=== PATIENT | female | born 1995 | race Two or more races ===

== ENCOUNTER 2024-10-27 23:57 | Inpatient (IN) | payer MEDICAID, SELFPAY ==
[2024-10-28] VITALS (22 sets, daily range): BP systolic 115–161; BP diastolic 68–96; PULSE 81–105; RESP 16–20; TEMP 36.7–37; O2SAT 97–100
[2024-10-28] MEDS: OXYTOCIN in NS 20 units 20 UNIT/1,000 ML BAG 125 UNIT IV (00:10)
--- NOTE | 2024-10-28 00:19 | PD.LDHP ---
Documentation for date of: 10/28/24 OB Labor/Induct. HPI History of Present Illness : 6 Para: 5 Term pregnancies: 5 pregnancies: 0 Living children: 5 History of Abortions: Spontaneous and Elective: 0 History of sections: No History of : No History of present illness: 29-year-old -0-0-5 presented to labor and delivery through the emergency room in active labor and full dilatation of cervix. Patient proceeded to deliver precipitously. Of note she has no care during the current . Review of Systems Review of Systems Systems Reviewed: All systems reviewed, normal except as documented Past Medical History Surgical History SURGICAL: Negative Section Meds Home Medications and Allergies Home Medications ?Medication ?Instructions ?Recorded ?Confirmed ?Type vit no.95-ferrous 1 tab PO QDAY 02/01/23 02/08/23 History fumarate 28 mg-folic acid 800 mcg tablet () Allergies Allergy/AdvReac Type Severity Reaction Status Date / Time No Known Allergies Allergy Unknown Verified 02/01/23 23:30 OB Exam Physical Exam Vital signs: Pulse BP 100 133/89 H 10/28/24 00:11 10/28/24 00:11 Constitutional Constitutional: no acute distress Routine HEENT Exam Head: Present normocephalic and atraumatic Eye: Present EOMI and PERRL ENT: Present mucous membranes moist Routine Neck Exam Neck: Present supple and trachea midline Routine Cardiovascular Exam Cardiovascular: Present RRR Routine Abdominal Exam Abdominal: Present soft and normoactive bowel sounds Detailed Labor and Delivery Exam Dilation (cm): 10 Effacement (%): 100 Baseline heart rate: 140 monitor accelerations: 15x15 monitor decelerations: None Routine Extremities Exam Extremities: Present full ROM Routine Skin Exam Skin: Present intact, dry and warm Routine Neurological Exam Neurological: Present alert, oriented X3 and CN II-XII intact Routine Psychiatric Exam Psychiatric: Present normal affect and normal thought process OB Assessment & Plan Assessment and Plan (1) Precipitous delivery: Status: Acute Assessment and plan: Patient is status post precipitous delivery Routine care All panel as well as social service consult ordered
[2024-10-28] MEDS: TRANEXAMIC ACID 1,000 MG IVPB 1,000 MG/100 ML BAG 200 MG IV (00:48)
[2024-10-28] MEDS: BENZO/LANO/ALOE (Dermoplast) 60 GM CAN 1 SPRAY TOP (00:54)
[2024-10-28 00:59] LABS: Basophils % (Auto) 0 % (0-2.5); Eosinophils # (Auto) 0.1 Thou/mm3 (0.0-0.5); Eosinophils % (Auto) 1 % (0-10); Hematocrit 26.3 % (36.0-46.0); Immature Granulocytes % (Auto) 1 % (0-0); Immature Granulocytes Auto 0.06 Thou/mm3 (0.00-0.00); Lymphocytes # (Auto) 1.9 Thou/mm3 (1.0-4.8); Lymphocytes % (Auto) 19 % (10-50); Mean Corpuscular Hemoglobin 21.2 pg (25.0-35.0); Mean Corpuscular Volume 71 fL (80-100); Monocytes # (Auto) 0.5 Thou/mm3 (0.0-0.8); Monocytes % (Auto) 5 % (0-12); Neutrophils # (Auto) 7.4 Thou/mm3 (1.8-7.7); Neutrophils % (Auto) 75 % (37-80); Nucleated Red Blood Cell % 0 /100 WBC (0); Platelet Count 223 Thou/mm3 (140-440); Red Blood Count 3.72 Miln/mm3 (4.00-5.20); White Blood Count 9.9 Thou/mm3 (3.6-11.0)
[2024-10-28 01:01] LABS: Hemoglobin 7.9 g/dL (12.0-16.0)
[2024-10-28 01:10] LABS: HIV (1&2) Antibody Rapid Non-Reactive
[2024-10-28 01:55] LABS: Hepatitis B Surface Antigen Non Reactive (Non React); Rubella, IgG Antibody Reactive (Immune)
[2024-10-28 01:59] LABS: Syphilis Nonreactive (Nonreactive)
[2024-10-28] MEDS: SODIUM CHLORIDE 0.9% 1000 ML 1,000 ML 999 ML IV (03:42)
[2024-10-28 07:29] LABS: Basophils % (Auto) 0 % (0-2.5); Eosinophils % (Auto) 0 % (0-10); Hematocrit 23.5 % (36.0-46.0); Immature Granulocytes % (Auto) 1 % (0-0); Immature Granulocytes Auto 0.08 Thou/mm3 (0.00-0.00); Lymphocytes # (Auto) 2.9 Thou/mm3 (1.0-4.8); Lymphocytes % (Auto) 20 % (10-50); Mean Corpuscular HGB Conc 29.8 g/dl (31.0-37.0); Mean Corpuscular Hemoglobin 21.3 pg (25.0-35.0); Mean Corpuscular Volume 71 fL (80-100); Monocytes # (Auto) 0.8 Thou/mm3 (0.0-0.8); Monocytes % (Auto) 6 % (0-12); Neutrophils # (Auto) 10.6 Thou/mm3 (1.8-7.7); Neutrophils % (Auto) 73 % (37-80); Nucleated Red Blood Cell % 0 /100 WBC (0); Platelet Count 247 Thou/mm3 (140-440); RDW Standard Deviation 44.2 fL (36.4-46.3); Red Blood Count 3.29 Miln/mm3 (4.00-5.20); White Blood Count 14.5 Thou/mm3 (3.6-11.0)
[2024-10-28 11:24] LABS: Amphetamine/Metham Scrn,Ur OB Positive (Negative); Benzoylecgonine Screen, Ur OB Negative (Negative); Opiate Screen,Urine OB Negative (Negative); THC Screen,Urine OB Negative (Negative)
[2024-10-28 11:25] LABS: Amphetamines/Metham U Confirm* See Sep Rpt
--- NOTE | 2024-10-28 11:29 | PC.CC ---
Patient is a 29-year-old, female, present to for delivery of baby girl. ASWAlice, met with patient [id number] to do initial assessment due mother testing positive for amphetamine/meth. ASW introduced herself, role in the agency, reason for visit, and discussed limits of confidentiality. Patient appeared alert and oriented to self, time, place, and situation. Patient made good eye contact. Patient was cooperative. Patient?s behavior appeared ordinary. No signs of delusions or hallucinations. The patient confirmed the information on the demographics. The patient reports she lives at home with her mother, Samantha Arias, and her five other children: Andrei Ivey 11/05/2012, Mello Uche 12/23/2013, Efren Uche 05/05/2015, Darrick Alonzooza 07/22/2020, Mayelin Hugo 02/08/2023. The father of the baby Pasquale Galaviz is not involved as he is incarcerated. The patient admitted to using ?meth? at a alliance party a few days ago. She reports she did not receive care as she has been going through a lot. Per RAIN Pandya, the had not been tested as mother reported the first bag fell off, the second bag baby had pooped. The patient reports she has all supplies she needs for her baby. She reports that she will be formula feeding the baby. ASW provided psychoeducation regarding baby blues and Post- Depression, as well as counseling groups at [facility]. SW provided community resources: Warm Line and Crisis Line. ASW, made the patient aware that a CWS SCAR report will be filed due to testing positive for ?meth.? The mother became tearful when provided this information. Patient denied past CWS involvement and domestic violence. CWS SCAR report was filed with Shabana Arias and report was faxed. company laundry worker reports she will contact ASW back to inform if they will be doing an immediate response. Alice KEBEDE provided update to RAIN Pandya.
--- NOTE | 2024-10-28 12:40 | PC.CC ---
CWS Remote Advisor Shabana called and notified Alice KEBEDE that she will be responding as an immediate to the hospital. ASW provided information to RAIN Pandya.
[2024-10-28] MEDS: ACETAMINOPHEN 325 MG TABLET 650 MG PO (15:11)
--- NOTE | 2024-10-28 16:56 | PC.NURSE ---
this speech writer was notified by marriage and family social worker from [employer] that she developed a 30 day safety plan for mother that was signed by mother and grandmother and another marriage and family social worker will take over the case tomorrow am, copy of marriage and family social worker id was placed in the chart
[2024-10-28] MEDS: IBUPROFEN TAB 400 MG TABLET 800 MG PO (20:03)
--- NOTE | 2024-10-28 21:56 | ESDS_ITS ---
DS: Providers Provider Date of admission: 10/27/24 23:57 Primary care physician: Physician No Primary/Family Admitting Provider: Crow Mallory MD Attending Provider on Admission: Crow Mallory MD Consults: 10/28/24 01:29 Referral Routine Comment: Attending Provider on DC: Crow Mallory MD Discharging Provider: Crow Mallory MD DS: Diagnosis Discharge Diagnosis (1) Precipitous delivery: Status: Acute (2) Encounter for care of lactating mother: Status: Acute (3) Hx of substance abuse: Status: Acute (4) Multigravida in third trimester: Status: Acute Problem List Completed Was Problem List Reviewed/Reconciled?: Yes Summary/Hosp Course Brief History: 29-year-old -0-0-5 presented to labor and delivery through the emergency room in active labor and full dilatation of cervix. Patient proceeded to deliver precipitously. Of note she has no care during the current . Time Spent with Patient Time attestation: Total time spent providing and/or coordinating discharge services: Exam Vital Signs Temp Pulse Resp BP Pulse Ox O2 Del Method 98.5 F 86 18 130/88 H 100 Room Air 10/28/24 20:26 10/28/24 20:26 10/28/24 20:26 10/28/24 20:26 10/28/24 20:26 10/28/24 20:01 Discharge Plan Plan Patient Disposition: HOME (Self Care) Patient condition on transfer: Stable Prescriptions/Referrals Prescriptions/Med Rec: New ibuprofen 400 mg Tablet 800 mg PO Q8HR PRN (Reason: Pain Scale 4-6 (Moderate) 1 Days Qty: 30 0RF docusate sodium 100 mg Capsule 100 mg PO QDAY 30 Days Qty: 30 0RF Continued PNV cmb#95-ferrous fumarate-FA [] 28 mg iron- 800 mcg tablet 1 tab PO QDAY Patient Comments: TAKE 1 TABLET BY MOUTH ONCE A DAY Discontinued ibuprofen 800 mg tablet 800 mg PO Q6H MDD 4 PRN (Reason: pain) Qty: 90 0RF docusate sodium [Colace] 100 mg capsule 100 mg PO BID Qty: 60 0RF lanolin 50 % ointment 1 applic topical TID PRN (Reason: skin irritation) Qty: 15 0RF Referrals: Mercy Juarez MD [Physician] - Crow Mallory MD [Physician] - No Primary/Family,Physician [Primary Care Provider] - Patient/Caregiver Discharge Instructions Meds to Beds: Yes Discharge Activity: activity as tolerated Education Materials: After a Vaginal , After Delivery Concerns, Breast Care After , Incision Care After Vaginal , Nutrition While , Understanding Depression, : Caring for Yourself, Feel Healthy After Print Language: [place] Stand Alone Forms: Neisha Chaudhary Info., Patient Portal Info Letter Planned Discharge Date 10/29/24
--- NOTE | 2024-10-28 22:45 | PC.NURSE ---
10/28/24 2245: Called MD Mallory, Pts. second unit of PRBC's ended and pt. has a cbc for tomorrow am 10/29/24 at 0500. Asked MD if he would like to order an earlier CBC. Instructed to wait for the morning cbc at 0500. No new orders at this time.
[2024-10-29] VITALS: BP 123/89; PULSE 93; RESP 20; TEMP 37.1; O2SAT 98
[2024-10-29 06:28] LABS: Basophils % (Auto) 0 % (0-2.5); Eosinophils # (Auto) 0.2 Thou/mm3 (0.0-0.5); Eosinophils % (Auto) 2 % (0-10); Hematocrit 27.1 % (36.0-46.0); Immature Granulocytes % (Auto) 1 % (0-0); Immature Granulocytes Auto 0.05 Thou/mm3 (0.00-0.00); Lymphocytes # (Auto) 3.2 Thou/mm3 (1.0-4.8); Lymphocytes % (Auto) 32 % (10-50); Mean Corpuscular HGB Conc 31.4 g/dl (31.0-37.0); Mean Corpuscular Hemoglobin 23.2 pg (25.0-35.0); Mean Corpuscular Volume 74 fL (80-100); Monocytes # (Auto) 0.7 Thou/mm3 (0.0-0.8); Monocytes % (Auto) 7 % (0-12); Neutrophils % (Auto) 59 % (37-80); Nucleated Red Blood Cell % 0 /100 WBC (0); Platelet Count 195 Thou/mm3 (140-440); RDW Standard Deviation 47.8 fL (36.4-46.3); Red Blood Count 3.66 Miln/mm3 (4.00-5.20)
[2024-10-29 06:58] LABS: Hemoglobin 8.5 g/dL (12.0-16.0)
[2024-10-29] MEDS: DOCUSATE SOD 100 MG CAPSULE PO (08:16)
[2024-10-29] MEDS: IBUPROFEN TAB 400 MG TABLET 800 MG PO (08:18)
--- NOTE | 2024-10-29 08:23 | PD.LDPPPRG ---
Subjective Subjective Interval history: Delivery type: Precipitous delivery with no care, severe anemia patient is status post transfusion of 2 units of packed RBCs with appropriate rise in hemoglobin Patient doing well this morning. No acute complaints. Ambulating, tolerating p.o. and voiding without difficulty. HTN/Pre-Eclampsia screen: No chest pain, shortness of breath, headache, visual changes, epigastric or right upper quadrant pain. Breast-feeding, lochia diminishing. Bowel: Flatus+/ BM+ Exam Vital Signs Temp Pulse Resp BP Pulse Ox O2 Del Method 98.7 F 93 20 123/89 H 98 Room Air 10/29/24 00:00 10/29/24 00:00 10/29/24 00:00 10/29/24 00:00 10/29/24 00:00 10/29/24 00:00 Constitutional Constitutional: no acute distress Routine HEENT Exam Head: Present normocephalic and atraumatic Eye: Present EOMI and PERRL ENT: Present mucous membranes moist Routine Neck Exam Neck: Present supple and trachea midline Routine Respiratory Exam Respiratory: Present chest non-tender, lungs clear, normal breath sounds and no resp distress Routine Cardiovascular Exam Cardiovascular: Present RRR Routine Abdominal Exam Abdominal: Present soft and normoactive bowel sounds Routine Extremities Exam Extremities: Present full ROM Routine Skin Exam Skin: Present intact, dry and warm Routine Neurological Exam Neurological: Present alert, oriented X3 and CN II-XII intact Routine Psychiatric Exam Psychiatric: Present normal affect and normal thought process Objective Labs 10/29/24 06:05 Labs: Laboratory Results - last 24 hr 10/28/24 10/28/24 10/28/24 00:48 08:20 10:45 WBC RBC Hgb Hct MCV MCH MCHC RDW Std Deviation Plt Count Neut % (Auto) Lymph % (Auto) Bartholomew % (Auto) Eos % (Auto) Baso % (Auto) Neut # (Auto) Lymph # (Auto) Bartholomew # (Auto) Eos # (Auto) Baso # (Auto) Immature Gran # (Auto) Absolute Nucleated RBC Immature Gran % Neutrophils % (Manual) Monocytes % (Manual) Eosinophils % (Manual) Basophils % (Manual) Metamyelocytes % Myelocytes % Promyelocytes % Nucleated RBC % Band Neutrophils Lymphocytes (Manual) Differential Comment Hypersegmented Polys Atypical Lymphocytes Blast Cells Plasma Cells Smudge Cells Other Cell Type Toxic Granulation Toxic Vacuolation Dohle Bodies Sonia Rods Giant Platelets Polychromasia Hypochromasia Poikilocytosis Basophilic Stippling Anisocytosis Microcytosis Macrocytosis Spherocytes Sickle Cells Target Cells Tear Drop Cells Ovalocytes Stomatocytes Helmet Cells Quiles-Pioneer Bodies [place] Cells Crenated Cell Acanthocytes (Spur) Rouleaux Schistocytes Morphology Comment Urine Opiates Screen Cancelled Negative U Amphetamines Confirm Cancelled U Amphetamin/Meth Scrn Cancelled Positive A U Cocaine Metab Screen Cancelled Negative U Marijuana (THC) Screen Cancelled Negative Blood Type A Positive Antibody Screen NEGATIVE Crossmatch See Detail Blood Bank Wristband ID Yes 10/29/24 06:05 WBC 10.0 RBC 3.66 L Hgb 8.5 L D Hct 27.1 L MCV 74 L MCH 23.2 L MCHC 31.4 RDW Std Deviation 47.8 H Plt Count 195 D Neut % (Auto) 59 Lymph % (Auto) 32 Bartholomew % (Auto) 7 Eos % (Auto) 2 Baso % (Auto) 0 Neut # (Auto) 6.0 Lymph # (Auto) 3.2 Bartholomew # (Auto) 0.7 Eos # (Auto) 0.2 Baso # (Auto) 0.0 Immature Gran # (Auto) 0.05 H Absolute Nucleated RBC 0.00 Immature Gran % 1 H Neutrophils % (Manual) Cancelled Monocytes % (Manual) Cancelled Eosinophils % (Manual) Cancelled Basophils % (Manual) Cancelled Metamyelocytes % Cancelled Myelocytes % Cancelled Promyelocytes % Cancelled Nucleated RBC % 0 Band Neutrophils Cancelled Lymphocytes (Manual) Cancelled Differential Comment Cancelled Hypersegmented Polys Cancelled Atypical Lymphocytes Cancelled Blast Cells Cancelled Plasma Cells Cancelled Smudge Cells Cancelled Other Cell Type Cancelled Toxic Granulation Cancelled Toxic Vacuolation Cancelled Dohle Bodies Cancelled Sonia Rods Cancelled Giant Platelets Cancelled Polychromasia Cancelled Hypochromasia Cancelled Poikilocytosis Cancelled Basophilic Stippling Cancelled Anisocytosis Cancelled Microcytosis Cancelled Macrocytosis Cancelled Spherocytes Cancelled Sickle Cells Cancelled Target Cells Cancelled Tear Drop Cells Cancelled Ovalocytes Cancelled Stomatocytes Cancelled Helmet Cells Cancelled Quiles-Pioneer Bodies Cancelled Leti Cells Cancelled Crenated Cell Cancelled Acanthocytes (Spur) Cancelled Rouleaux Cancelled Schistocytes Cancelled Morphology Comment Cancelled Urine Opiates Screen U Amphetamines Confirm U Amphetamin/Meth Scrn U Cocaine Metab Screen U Marijuana (THC) Screen Blood Type Antibody Screen Crossmatch Blood Bank Wristband ID Assessment & Plan Problem List (1) Precipitous delivery: Status: Acute Assessment and plan: PPD/POD#2 1. Continue routine care 2. Transition to PO meds. 3. Encourage to ambulate/ breast-feed 4. Transfuse IV iron, 5. Anticipate discharge home today (2) Encounter for care of lactating mother: Status: Acute (3) Hx of substance abuse: Status: Acute (4) Multigravida in third trimester: Status: Acute Time Spent With Patient Time: Total time spent is greater than 50% in coordination of care (as documented) at patient's floor/unit and/or counseling patient:
[2024-10-29 08:45] VITALS: BP 128/85; PULSE 79; RESP 18; TEMP 36.8; O2SAT 99
[2024-10-29] MEDS: SODIUM CHLORIDE 0.9% IV (09:00)
[2024-10-29] MEDS: [UNRECOGNIZED DRUG - OTHER] IV (09:00)
--- NOTE | 2024-10-29 12:56 | PC.SS ---
CERTIFIED PHYSICIAN'S ASSISTANT informed by bedside nurse that S staff, Malia David [phone]; will be in route to conduct bedside contact with the patient.
--- NOTE | 2024-10-29 14:08 | PC.SS ---
METHODS TIME ANALYST informed by bedside nurse CWS plan is for the to discharge in mother's custody. METHODS TIME ANALYST confirmed with [facility] [place] staff, Gris David that there will be no hold placed on the infant. [facility] [place] staff, Kaycee Block ; also present.
[2024-10-29 14:11] LABS: Chlamydia trachomatis PCR Positive (Not Detect); Neisseria Gonorrhoeae DNA PCR Negative (Not Detect); Trichomonas Negative (Negative)
--- NOTE | 2024-10-29 14:25 | PC.NURSE ---
Dr Mallory notified about pos chlamydia test. per doctor he will send rx to her pharmacy/
== END 2024-10-29 14:00 | disposition home or self-care (01) | DRG 560 ==
LOC: S4SX 10-28 00:17 → S4NX 10-28 02:24 → S4SX 10-28 02:28 → S4NX 10-28 02:50
PROVIDERS: Admitting Provider Obstetrics & Gynecology; Visit Provider Obstetrics & Gynecology
DX: O62.3 Precipitate labor (principal); Z37.0 Single live birth; O99.02 Anemia complicating childbirth; Z3A.00 Weeks of gestation of pregnancy not specified
CPT/HCPCS: 36415; 80307; 85025; 86703; 86762; 86780; 86850; 86900; 86901; 86923; 87340; 87491; 87591; 87661; J2590; J2916; J3490; J7030; J7050; P9016; A9270